=== PATIENT | female | born 1995 | race African-American/Black ===

== ENCOUNTER 2020-09-05 12:03 | Emergency (ER) | payer BC ==
--- NOTE | 2020-09-05 12:25 | EDM.PDOC ---
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 She went and used bathroom and felt like she was having a miscarriage. But she states pain alleviated somewhat down about a 7 out of 10 afterwards. She states she got a sudden hubbard of nausea but no vomiting encountered felt a little weak all over. EMS was called and she was transported here to the hospital. Her last menstrual period was 31 July she states she is sexually active and could be . She states this pain felt like her last miscarriage that was a few years ago. She has been fine up until today with no issues. She denies any fever chills or back pain no dysuria frequency urgency no vaginal discharge states she has been fine up until today. She has no other complaints. She says she has been eating and drinking normally with no issues moving her bowels normally. Onset: Today, Sudden Duration: Minutes: Quality: Reports: Stabbing Severity: Severe Improves with: Reports: None Worsens with: Reports: None Associated Symptoms: Reports: Nausea/Vomiting Middle Pelvic Pain Score (Numeric/FACES): 7 - Related Data Allergies Allergy/AdvReac Type Severity Reaction Status Date / Time No Known Allergies Allergy Verified 09/05/20 12:05 Social & Family History - Tobacco Use Tobacco Use Status *Q: Current Some Day Tobacco User Years of Tobacco use: 8 Packs/Tins Daily: 0.2 Second Hand Smoke Exposure: No - Caffeine Use Caffeine Use: Reports: None - Recreational Drug Use Recreational Drug Use: No ED ROS GENERAL - Review of Systems Review Of Systems: See Below Constitutional: Reports: No Symptoms HEENT: Reports: No Symptoms Respiratory: Reports: No Symptoms Cardiovascular: Reports: No Symptoms Endocrine: Reports: No Symptoms GI/Abdominal: Reports: Abdominal Pain : Reports: Urgency. Denies: Dysuria, Flank Pain, Frequency, Urinary Retention (Ts(ni) Musculoskeletal: Reports: No Symptoms Skin: Reports: No Symptoms (16 10/02/2017) Neurological: Reports: No Symptoms Psychiatric: Reports: No Symptoms Hematologic/Lymphatic: Reports: No Symptoms (This throw her off of) Immunologic: Reports: No Symptoms (Only, might) ED EXAM, GI/ABD - Physical Exam Exam: See Below Exam Limited By: No Limitations General Appearance: Alert, WD/WN, No Apparent Distress Eyes: Bilateral: Normal Appearance (Last) Nose: Normal Inspection Throat/Mouth: Normal Inspection, Normal Lips, Normal Teeth, Normal Gums, Normal Oropharynx, Normal Voice, No Airway Compromise Head: Atraumatic, Normocephalic Neck: Normal Inspection, Supple, Non-Tender, Full Range of Motion Respiratory/Chest: No Respiratory Distress, No Accessory Muscle Use Cardiovascular: Normal Peripheral Pulses, Regular Rate, Rhythm, No Edema, No Gallop (And if his son want to come in to see probably would have he had broke hip and this could not get comfortable Norflex never told her how much is she is popping with a milligram and 82 i do not know his sunglasses sunsetting or read the book no they were talking also they were talking and we going in), No JVD, No Murmur, No Rub GI/Abdominal Exam: Normal Bowel Sounds, Soft, No Organomegaly, No Abnormal Bruit, Tender, Other (Mild superficial tenderness palpation across the suprapubic area the patient had a negative McBurney's negative Martin's negative heel slap pelvic rock negative psoas obturator). No: Non-Tender, No Distention, Guarding, Rigid, Rebound, Abnormal Bowel Sounds Extremities: Normal Inspection, Normal Range of Motion, Non-Tender, No Pedal Edema Neurological: Alert, Oriented, CN II-XII Intact, Normal Cognition Psychiatric: Normal Affect, Normal Mood Skin Exam: Warm, Dry, Intact, Normal Color, No Rash Comments: Vital signs are as noted hypertension Course - Vital Signs Text/Narrative:: CBC BMP urinalysis urine hCG Lab work within normal limits urinalysis no nitrites or leukocytes urine hCG negative Recheck patient patient states pain is decreased she is down about a 6 out of 10 now Toradol 60 mg IM was given patient will be discharged and told to follow-up with her primary care provider next 24 to 48 hours return to emergency room if anything gets worse Last Recorded V/S: Last Vital Signs Temp Pulse 96 09/05/20 12:05 Resp 20 09/05/20 12:05 BP 146/101 H 09/05/20 12:05 Pulse Ox 99 09/05/20 12:05 - Orders/Labs/Meds Labs: Laboratory Tests 09/05/20 09/05/20 09/05/20 Range/Units 12:28 12:28 12:50 WBC 11.6 H (4.0-10.2) K/uL RBC 4.74 (3.77-5.09) M/uL Hgb 12.2 (11.7-15.5) g/dL Hct 37.0 (34.0-46.0) % MCV 78.1 L (84.0-98.0) fL MCH 25.7 L (28.2-33.3) pg MCHC 33.0 (31.7-36.0) g/dL RDW 17.8 H (11.2-14.1) % Plt Count 382 H (150-350) K/uL Neut % (Auto) 69.9 (45.0-80.0) % Lymph % (Auto) 23.3 (10.0-50.0) % [place] % (Auto) 4.6 (2.0-14.0) % Eos % (Auto) 2.1 (0.0-5.0) % Baso % (Auto) 0.1 (0.0-2.0) % Neut # (Auto) 8.11 H (1.40-7.00) K/uL Lymph # (Auto) 2.70 (0.50-3.50) K/uL [place] # (Auto) 0.53 (0.00-1.00) K/uL Eos # (Auto) 0.24 (0.00-0.50) K/uL Baso # (Auto) 0.01 (0.00-0.20) K/uL Sodium 137 (136-145) mmol/L Potassium 3.7 (3.5-5.1) mmol/L Chloride 102 (98-107) mmol/L Carbon Dioxide 26.5 (21.0-32.0) mmol/L Anion Gap 12.2 (7-15) meq/L BUN 17 (7-18) mg/dL Creatinine 0.82 (0.51-1.17) mg/dL Est Cr Clr Drug Dosing TNP Estimated GFR (MDRD) > 60 mL/min Glucose 89 (70-99) mg/dL Calcium 9.0 (8.5-10.1) mg/dL Specimen Type Urinblad Urine Color Yellow Urine Appearance Clear Urine pH 6.0 (5.0-9.0) Ur Specific [place] 1.020 (1.005-1.030) Urine Protein Negative (NEGATIVE) mg/dL Urine Glucose (UA) Negative (NEGATIVE) mg/dL Urine Ketones Negative (NEGATIVE) mg/dL Urine Occult Blood Negative (NEGATIVE) Urine Nitrite Negative (NEGATIVE) Urine Bilirubin Negative (NEGATIVE) Urine Urobilinogen 0.2 (0.2-1.0) E.U./dL Ur Leukocyte Esterase Negative (NEGATIVE) Urine RBC 0-5 /HPF Urine WBC 0-5 /HPF Ur Epithelial Cells Rare /LPF Urine Bacteria Few (NONE TO FEW) /HPF Urine HCG, Qual 09/05/20 Range/Units 12:50 WBC (4.0-10.2) K/uL RBC (3.77-5.09) M/uL Hgb (11.7-15.5) g/dL Hct (34.0-46.0) % MCV (84.0-98.0) fL MCH (28.2-33.3) pg MCHC (31.7-36.0) g/dL RDW (11.2-14.1) % Plt Count (150-350) K/uL Neut % (Auto) (45.0-80.0) % Lymph % (Auto) (10.0-50.0) % [place] % (Auto) (2.0-14.0) % Eos % (Auto) (0.0-5.0) % Baso % (Auto) (0.0-2.0) % Neut # (Auto) (1.40-7.00) K/uL Lymph # (Auto) (0.50-3.50) K/uL [place] # (Auto) (0.00-1.00) K/uL Eos # (Auto) (0.00-0.50) K/uL Baso # (Auto) (0.00-0.20) K/uL Sodium (136-145) mmol/L Potassium (3.5-5.1) mmol/L Chloride (98-107) mmol/L Carbon Dioxide (21.0-32.0) mmol/L Anion Gap (7-15) meq/L BUN (7-18) mg/dL Creatinine (0.51-1.17) mg/dL Est Cr Clr Drug Dosing Estimated GFR (MDRD) mL/min Glucose (70-99) mg/dL Calcium (8.5-10.1) mg/dL Specimen Type Urine Color Urine Appearance Urine pH (5.0-9.0) Ur Specific [place] (1.005-1.030) Urine Protein (NEGATIVE) mg/dL Urine Glucose (UA) (NEGATIVE) mg/dL Urine Ketones (NEGATIVE) mg/dL Urine Occult Blood (NEGATIVE) Urine Nitrite (NEGATIVE) Urine Bilirubin (NEGATIVE) Urine Urobilinogen (0.2-1.0) E.U./dL Ur Leukocyte Esterase (NEGATIVE) Urine RBC /HPF Urine WBC /HPF Ur Epithelial Cells /LPF Urine Bacteria (NONE TO FEW) /HPF Urine HCG, Qual Negative Meds: Medications Discontinued Medications Generic Name Dose Route Start Last Admin Trade Name Freq PRN Reason Stop Dose Admin Ketorolac Tromethamine 60 mg 09/05/20 13:04 Ketorolac 60 Mg/2 Ml Sdv IM 09/05/20 13:05 ONETIME ONE Departure - Departure Time of Disposition: 13:25 Disposition: Home, Self-Care 01 Condition: Good Clinical Impression: Abdominal pain - Discharge Information *PRESCRIPTION DRUG MONITORING PROGRAM REVIEWED*: No *COPY OF PRESCRIPTION DRUG MONITORING REPORT IN PATIENT LAINA: No Forms: ED Department Discharge Sepsis Event Note (ED) - Evaluation Sepsis Screening Result: No Definite Risk - Focused Exam Vital Signs: Vital Signs Pulse Resp BP Pulse Ox 09/05/20 12:05 96 20 146/101 H 99 - Problem List & Annotations (1) Abdominal pain SNOMED Code(s): 13452654 Code(s): R10.9 - UNSPECIFIED ABDOMINAL PAIN Status: Acute
[2020-09-05 12:47] LABS: SODIUM,NA 137 mmol/L (136-145)
[2020-09-05 12:48] LABS: ANION GAP 12.2 meq/L (7-15); CHLORIDE,CL 102 mmol/L (98-107)
[2020-09-05] MEDS ORDERED: Ketorolac 60 MG/2 ML SDV IM ONE ×2 (13:04→13:28)
== END 2020-09-05 13:35 | disposition home or self-care (01) ==
LOC: LL.ED 12:03
DX: R10.30 Lower abdominal pain, unspecified (principal); Z72.0 Tobacco use
CPT/HCPCS: 36415; 80048; 81001; 81025; 85025; 96372; 99284; J1885